=== PATIENT | female | born 1980 | race Caucasian/White ===

== ENCOUNTER 2019-10-02 09:52 | Emergency (ER) | payer BC ==
--- NOTE | 2019-10-02 10:30 | RAD ---
XR Ankle Lt 3 View STANDARD History: Ankle pain. Injury Comparison: None. Findings: No acute fracture or malalignment. Small medial malleolar osteophyte. Small dorsal and plan tar calcaneal enthesophytes. Impression: No acute osseous abnormality.
[2019-10-02] MEDS ORDERED: Acetaminophen/Codeine 30-300mg Tablet ONE (10:41)
[2019-10-02] MEDS ORDERED: Ibuprofen 800 MG TAB ONE (10:42)
== END 2019-10-02 11:15 | disposition home or self-care (01) ==
LOC: NAV ERS 09:52
DX: S93.402A Sprain of unspecified ligament of left ankle, initial encounter (principal); F17.200 Nicotine dependence, unspecified, uncomplicated; X50.9XXA Other and unspecified overexertion or strenuous movements or postures, initial encounter